=== PATIENT | female | born 1985 | race Caucasian/White ===

== ENCOUNTER → 2018-08-14 | Outpatient (CLI) | payer OTHER ==
--- NOTE | 2018-08-16 17:06 | PATH ---
[address] [address] PATHOLOGY RPT PROCEDURE Name: ORALIA SEGUNDO Room: [facility] Henry#: [id number] Admission: 08/14/18 Date of : 89 Discharge: Report #: [id number] Path Case #: [id number] [facility] Accession Number: [id number] . 01 Material submitted: . PART A: breast - LEFT BREAST STEREOTACTIC BIOPSY. Modifiers: left PART B: breast - RIGHT BREAST STEREOTACTIC BIOPSY. Modifiers: right . 01 Clinical history: . A. Left breast calcifications, first biopsy - left side B. Right breast calcifications, second biopsy - right side . 02 Diagnosis: A. Left breast calcifications (first biopsy): - Benign breast tissue with minimal chronic inflammation and scattered coarse calcifications, negative for atypia. See comment. . B. Right breast calcifications (second biopsy): - Benign breast tissue with minimal chronic inflammation and scattered coarse calcifications, negative for atypia. See comment. (LEODAN:frandy; 08/16/2018) QMS/08/16/2018 . 02 Comment: Specimens A and B reviewed with Dr. Miguel Angel Bell, who agrees with the diagnoses. (LEODAN:frandy; 08/16/2018) . 02 Electronically signed: . Albert Cintron MD, Pathologist NPI- [id number] . 01 Gross description: . A. Received in formalin labeled "Oralia Segundo, left breast calcifications," are multiple needle cores of yellow-vázquez fibrofatty tissue measuring 4.0 x 3.3 x 0.8 cm in aggregate dimensions. The tissue is submitted in its entirety in cassettes A1 through A4. The cold ischemic time is 5 minutes. The total formalin fixation time is 28 hours and 45 minutes. . B. Received in formalin labeled "Oralia Segundo, right breast calcifications," are multiple needle cores of yellow-vázquez fibrofatty tissue measuring 3.3 x 2.7 x 0.5 cm in aggregate dimensions. Additionally received in the same container is a blue plastic cassette containing multiple needle cores of yellow-vázquez fibrofatty tissue measuring 3.5 x 2.0 x 0.6 cm in aggregate dimensions. The tissue in the cassette is transferred to cassette B1 and the remaining tissue is submitted in its entirety in cassettes B2 through B4. The cold ischemic time is 5 [place]. [place] [address] PATHOLOGY RPT PROCEDURE Name: ORALIA SEGUNDO Room: TEDDY Figueroa#: [id number] Admission: 08/14/18 Date of : 89 Discharge: Report #: [id number] Path Case #: [id number] The total formalin fixation time is 27 hours and 5 minutes. (TSD; 08/14/2018) TOB/TOB . 02 Pathologist provided ICD-10: N61.0 . 02 CPT . 947431, [id number] Specimen Comment: A courtesy copy of this report has been sent to Specimen Comment: [phone], , . Specimen Comment: Report sent to ,DR BADILLO / DR MIRZA Performed at: 01 [facility] [address], [place] [id number] MD Alban Renae MD Phone: [phone] Performed at: 02 [facility] [place] [facility] [address], [place] [id number] MD Albert Cintron MD Phone: [phone]
== END | disposition home or self-care (01) ==
LOC: M.RAD 11:00
DX: D24.1 Benign neoplasm of right breast (principal); N61.0 Mastitis without abscess; R92.1 Mammographic calcification found on diagnostic imaging of breast

== ENCOUNTER 2019-06-14 14:19 | Emergency (ER) | payer OTHER ==
[~2019-06-14] VITALS: Ht 157.5 cm; Wt 75.8 kg
[2019-06-14] MEDS ORDERED: XYZAL5 MG PO (14:29)
[2019-06-14] MEDS ORDERED: WELLBUTRIN XL300 MG PO (14:29)
[2019-06-14 16:09] LABS: INFLUENZA A ANTIGEN Negative (Negative); INFLUENZA B ANTIGEN Negative (Negative)
[2019-06-14] MEDS ORDERED: PREDNISONE 10 M10 M1 PO (16:12)
[2019-06-14] MEDS ORDERED: VENTOLIN HFA INH8 GM INH (16:12)
[2019-06-14 16:26] VITALS: BP 121/70
== END 2019-06-14 16:27 | disposition home or self-care (01) ==
LOC: M.ERS 14:19
PROVIDERS: Nurse Practitioner
DX: J98.8 Other specified respiratory disorders (principal); Z98.890 Other specified postprocedural states; Z98.51 Tubal ligation status; Z91.048 Other nonmedicinal substance allergy status

== ENCOUNTER → 2019-07-29 | Outpatient (CLI) | payer OTHER ==
[~2019-07-29] MED LIST: PREDNISONE 10 M10 M1 PO; VENTOLIN HFA INH8 GM INH; WELLBUTRIN XL300 MG PO; XYZAL5 MG PO
== END ==
LOC: M.RAD 08:52
DX: Z12.39 Encounter for other screening for malignant neoplasm of breast (principal)

== ENCOUNTER → 2020-08-06 | Outpatient (CLI) | payer OTHER | LOC: M.RAD 13:35 | PROVIDERS: ATTEND Family Medicine | DX: Z12.31 Encounter for screening mammogram for malignant neoplasm of breast (principal) ==